=== PATIENT | female | born 1970 | race African-American/Black ===

== ENCOUNTER 2017-12-30 14:12 | Inpatient (IN) | payer OTHER ==
[~2017-12-30] VITALS: Ht 170.2 cm; Wt 114.0 kg
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
[2017-12-30] MEDS ORDERED: ALBU6.7H INH (17:29)
[2017-12-30] MEDS ORDERED: TIZA4CAP3 PO (17:31)
[2017-12-30] MEDS ORDERED: PROP20TA3 PO (17:40)
[2017-12-30 17:52] LABS: AUTOMATED NEUTROPHIL # 2.4 TH/MM3 (1.8-7.7); BASOPHIL # 0.1 TH/MM3 (0-0.2); BASOPHIL % 0.8 % (0.0-2.0); HEMATOCRIT 44.3 % (35.0-46.0); HEMOGLOBIN 14.8 GM/DL (11.6-15.3); LYMPH % 57.6 % (9.0-44.0); LYMPHOCYTE # 3.9 TH/MM3 (1.0-4.8); MEAN CELL VOLUME 88.1 FL (80.0-100.0); MEAN CORPUSCULAR HEMOGLOBIN 29.4 PG (27.0-34.0); MEAN CORPUSCULAR HGB CONC 33.4 % (32.0-36.0); MEAN PLATELET VOLUME 7.3 FL (7.0-11.0); MONO % 6.3 % (0.0-8.0); MONOCYTE # 0.4 TH/MM3 (0-0.9); NEUT % 35.3 % (16.0-70.0); PLATELET COUNT 304 TH/MM3 (150-450); RED BLOOD COUNT 5.02 MIL/MM3 (4.00-5.30); RED CELL DISTRIBUTION WIDTH 13.4 % (11.6-17.2); WHITE BLOOD COUNT 6.8 TH/MM3 (4.0-11.0)
[2017-12-30 18:05] LABS: ALBUMIN 3.9 GM/DL (3.4-5.0); ALT (GPT) 18 U/L (10-53); AST (GOT) 18 U/L (15-37); BICARBONATE 26.9 MEQ/L (21.0-32.0); BLOOD UREA NITROGEN 17 MG/DL (7-18); CALCIUM 9.3 MG/DL (8.5-10.1); CHLORIDE 103 MEQ/L (98-107); CREATININE 1.41 MG/DL (0.50-1.00); GLOMERULAR FILTRATION RATE 48 ML/MIN (>89); GLUCOSE,RANDOM 137 MG/DL (74-106); SODIUM (NA) 138 MEQ/L (136-145)
[2017-12-30 18:15] LABS: ALKALINE PHOSPHATASE 124 U/L (45-117); TOTAL BILIRUBIN ADULT 0.4 MG/DL (0.2-1.0); TOTAL PROTEIN 8.5 GM/DL (6.4-8.2)
[2017-12-30 19:10] VITALS: BP 140/63; PULSE 86; RESP 18; O2SAT 98
[2017-12-30] MEDS ORDERED: CYPR4TAB PO (19:47)
[2017-12-30] MEDS ORDERED: FLUO60TA PO (19:48)
[2017-12-30] MEDS ORDERED: LURA40 PO (19:49)
[2017-12-30] MEDS ORDERED: HYDR50TA94 PO (19:50)
[2017-12-30] MEDS ORDERED: PRAZ5CAP PO (19:50)
[2017-12-30] MEDS ORDERED: GABA600T PO ×2 (19:51→19:52)
[2017-12-30] MEDS ORDERED: SPIR25TA PO (19:51)
[2017-12-30] MEDS ORDERED: FLUO40CA PO (19:53)
[2017-12-30] MEDS ORDERED: METF500T PO (19:55)
[2017-12-30] MEDS ORDERED: hydrOXYzine HCL 50 MG/ML VIAL IM ONE (20:30)
[2017-12-30] MEDS ORDERED: QUEtiapine FUMARATE 25 MG TAB PO ONE (22:30)
[2017-12-30] MEDS ORDERED: ACETAMINOPHEN 325 MG TAB PO PRN (22:30)
[2017-12-30] MEDS ORDERED: ALUMINUM/MAGNESIUM/SIMETH 30 ML CUP PO PRN (22:30)
[2017-12-30] MEDS ORDERED: MAGNESIUM HYDROXIDE SUSP 30 ML CUP PO PRN (22:30)
[2017-12-30] MEDS ORDERED: ALBUTEROL SULFATE 90 MCG/ACT HFA 8 GM INHALER INH PRN (22:30)
[2017-12-30] MEDS ORDERED: diphenhydrAMINE HCL 50 MG CAP PO PRN (22:30)
[2017-12-30] MEDS ORDERED: diphenhydrAMINE HCL 50 MG/ML VIAL - HS PRN IM (22:30)
[2017-12-30] MEDS ORDERED: diphenhydrAMINE HCL 50 MG CAP - HS PRN PO (22:30)
[2017-12-30] MEDS ORDERED: diphenhydrAMINE HCL 50 MG/ML VIAL IM PRN (22:30)
[2017-12-31] MEDS ORDERED: QUEtiapine FUMARATE 25 MG TAB PO ONE
[2017-12-31 01:13] VITALS: BP 120/58; PULSE 102; RESP 18; TEMP 97.3; O2SAT 99
[2017-12-31 05:55] VITALS: BP 123/58; RESP 20; TEMP 97.5
[2017-12-31] MEDS: PROPRANOLOL HCL 20 MG TAB PO SCH ×2 (08:36→20:41)
[2017-12-31] MEDS: SPIRONOLACTONE 25 MG TAB PO SCH (08:36)
[2017-12-31] MEDS: GABAPENTIN 300 MG CAP PO SCH ×3 (08:36→20:42)
[2017-12-31] MEDS: metFORMIN HCL 500 MG TAB PO SCH ×2 (08:37→18:00)
[2017-12-31] MEDS ORDERED: NICOTINE 21 MG/24 HR PATCH T-DERMAL SCH (09:00)
[2017-12-31] MEDS ORDERED: FLUoxetine HCL 20 MG CAP PO SCH (09:00)
[2017-12-31] MEDS ORDERED: LURASIDONE 40 MG TAB PO SCH (09:00)
[2017-12-31] MEDS ORDERED: ALBUTEROL SULFATE 90 MCG/ACT HFA 8 GM INHALER INH PRN (12:30)
[2017-12-31] MEDS ORDERED: hydrOXYzine HCL 50 MG TAB PO SCH (13:00)
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
[2017-12-31] MEDS: ZIPRASIDONE HCL 40 MG CAP PO SCH ×2 (14:00→18:00)
--- NOTE | 2017-12-31 14:20 | PD.CONS ---
HPI Service [facility] Consult Requested By Reason for Consult Medical management [facility] Diagnoses: History of Present Illness 47-year-old female with past medical history significant for hypertension, diabetes, PTSD and anxiety who presented to the emergency department on 12/30 under Colvin act by patient's [place] nurse practitioner due to suicidal ideation. Patient has been admitted to inpatient psychiatry [facility] consulted to assist with ongoing medical management. Patient reports that she is a diabetic but does not take any insulin for this only takes metformin. She denies any fevers, chills, nausea, vomiting, diarrhea, constipation, headaches, throat pain, cough or shortness of breath. At the moment she does not have any acute complaints or concerns. She is requesting Tylenol if she should needed in case she does have a headache. She is eating and drinking without any issues, denies any dysuria or abdominal pain. She is asking when she will be discharged. Review of Systems Except as stated in HPI: all other systems reviewed are Neg Past Family Social History Allergies: Coded Allergies: No Known Allergies (Unverified , 12/30/17) Past Medical History Hypertension Diabetes PTSD Anxiety Right hip injury resulting in hairline fracture, no surgical intervention. Past Surgical History Lysis of adhesions Laparoscopic cholecystectomy Total hysterectomy secondary to ovarian cyst and endometriosis Reported Medications Reported Meds & Active Scripts Active Reported Metformin (Metformin HCl) 500 Mg Tab 1,000 Mg PO BIDPC Fluoxetine (Fluoxetine HCl) 40 Mg Cap 80 Cap PO DAILY Gabapentin 600 Mg Tab 900 Mg PO HS Gabapentin 600 Mg Tab 600 Mg PO BID Spironolactone 25 Mg Tab 25 Mg PO DAILY Hydroxyzine HCl 50 Mg Tab 50 Mg PO TID Prazosin (Prazosin HCl) 5 Mg Cap 5 Mg PO HS Fluoxetine (Fluoxetine HCl) 60 Mg Tab 60 Mg PO DAILY Cyproheptadine (Cyproheptadine HCl) 4 Mg Tab 8 Mg PO HS Propranolol (Propranolol HCl) 20 Mg Tab 20 Mg PO Q12HR Tizanidine (Tizanidine HCl) 4 Mg Cap 4 Mg PO TID PRN Proventil Hfa 6.7 GM Inh (Albuterol Sulfate) 90 Mcg/Act Aer 1 Puff INH Q4H PRN Active Ordered Medications Current Medications Medications (Trade) Dose Ordered Sig/Triston Route Start Time Stop Time Status Last Admin (Benadryl) 50 mg Q6H PRN PO 12/30/17 22:30 12/30/17 22:48 (Benadryl) 50 mg HS PRN PO 12/30/17 22:30 (Tylenol) 650 mg Q4H PRN PO 12/30/17 22:30 (Milk Of Magnesia Liq) 30 ml DAILY PRN PO 12/30/17 22:30 (Mag-Al Plus Susp Liq) 30 ml Q6H PRN PO 12/30/17 22:30 (Proair Hfa Inh) 1 puff Q4H PRN INH 12/30/17 22:30 (Zanaflex) 4 mg TID PRN PO 12/30/17 22:30 12/31/17 15:10 (Inderal) 20 mg Q12HR PO 12/31/17 09:00 12/31/17 08:36 (Periactin) 8 mg HS PO 12/31/17 21:00 (Minipress) 5 mg HS PO 12/31/17 21:00 (Aldactone) 25 mg DAILY PO 12/31/17 09:00 12/31/17 08:36 (Neurontin) 600 mg DAILY@0900,1500 PO 12/31/17 09:00 12/31/17 15:00 (Neurontin) 900 mg HS PO 12/31/17 21:00 (Glucophage) 1,000 mg BIDPC PO 12/31/17 09:00 12/31/17 08:37 (Latuda) 40 mg DAILY PO 01/01/18 09:00 (Geodon) 40 mg BIDPC PO 12/31/17 14:00 12/31/17 14:00 (Elavil) 25 mg HS PO 12/31/17 21:00 (PROzac) 40 mg DAILY PO 01/01/18 09:00 Family History Father: Pancreatic cancer Mother: Cardiac history Social History Denies any alcohol, tobacco or illicit drug use. Physical Exam Vital Signs Vital Signs Date Time Temp Pulse Resp B/P (MAP) Pulse Ox O2 Delivery O2 Flow Rate FiO2 12/31/17 05:55 97.5 20 123/58 (79) 12/31/17 01:13 97.3 102 18 120/58 (78) 99 12/30/17 19:10 86 18 140/63 (88) 98 Room Air Physical Exam GENERAL: This is a well-nourished, well-developed patient, in no apparent distress. SKIN: No rashes, ecchymoses or lesions. Cool and dry. HEAD: Atraumatic. Normocephalic. EYES: Pupils equal round and reactive. Extraocular motions intact. No scleral icterus. No injection or drainage. ENT: Nose without bleeding, purulent drainage. Throat without erythema. Airway patent. NECK: Trachea midline. No JVD. Supple, nontender. CARDIOVASCULAR: Regular rate and rhythm without murmurs, gallops, or rubs. RESPIRATORY: Clear to auscultation. Breath sounds equal bilaterally. No wheezes , rales, or rhonchi. GASTROINTESTINAL: Abdomen soft, non-tender, nondistended. No palpable masses. No guarding. MUSCULOSKELETAL: Extremities without clubbing, cyanosis, or edema. No joint tenderness, effusion, or edema noted. No calf tenderness. NEUROLOGICAL: Awake and alert. Cranial nerves II through XII intact. Motor and sensory grossly within normal limits. Five out of 5 muscle strength in all muscle groups. Normal speech. Laboratory Laboratory Tests Test 12/30/17 17:00 White Blood Count 6.8 Red Blood Count 5.02 Hemoglobin 14.8 Hematocrit 44.3 Mean Corpuscular Volume 88.1 Mean Corpuscular Hemoglobin 29.4 Mean Corpuscular Hemoglobin Concent 33.4 Red Cell Distribution Width 13.4 Platelet Count 304 Mean Platelet Volume 7.3 Neutrophils (%) (Auto) 35.3 Lymphocytes (%) (Auto) 57.6 Monocytes (%) (Auto) 6.3 Eosinophils (%) (Auto) 0.0 Basophils (%) (Auto) 0.8 Neutrophils # (Auto) 2.4 Lymphocytes # (Auto) 3.9 Monocytes # (Auto) 0.4 Eosinophils # (Auto) 0.0 Basophils # (Auto) 0.1 CBC Comment DIFF FINAL Differential Comment Blood Urea Nitrogen 17 Creatinine 1.41 Random Glucose 137 Total Protein 8.5 Albumin 3.9 Calcium Level 9.3 Alkaline Phosphatase 124 Aspartate Amino Transf (AST/SGOT) 18 Alanine Aminotransferase (ALT/SGPT) 18 Total Bilirubin 0.4 Sodium Level 138 Potassium Level 3.3 Chloride Level 103 Carbon Dioxide Level 26.9 Anion Gap 8 Estimat Glomerular Filtration Rate 48 Thyroid Stimulating Hormone 3rd Gen 1.140 Urine Opiates Screen NEG Urine Barbiturates Screen NEG Urine Amphetamines Screen NEG Urine Benzodiazepines Screen NEG Urine Cocaine Screen NEG Urine Cannabinoids Screen NEG Result Diagram: 12/30/17 1700 12/30/17 1700 Assessment and Plan Assessment and Plan 47-year-old female with past medical history significant for hypertension, diabetes, PTSD and anxiety who presented to the emergency department on 12/30 under Colvin act by patient's [facility] nurse practitioner due to suicidal ideation. Patient has been admitted to inpatient psychiatry [facility] consulted to assist with ongoing medical management. PTSD Anxiety -treatment per psychiatry greatly appreciated HTN, controlled - Continue home spironolactone 25 mg daily, Minipress 5 mg at bedtime, and Inderal 20 mg twice daily - Continue monitoring BP, adjust meds as needed DM II -Continue metformin 1000 mg twice daily - Check hemoglobin A1C - continue 1800 ADA diet - Accu-checks ACHS, monitor and if needed initiate sliding scale Decreased renal function hypokalemia -Labs from 12/30 reviewed, potassium 3.3, creatinine 1.41, GFR 48 -Recheck BMP tomorrow in the a.m., patient asymptomatic - ? if this could be related to Metformin use, will follow up on labs if creatinine still high, consider D/C Metformin. DVT prophylaxis-ambulation Discussed with nurse. Thank you for this consultation, will continue to follow along. Cristo Tinajero Dec 31, 2017 14:20
[2017-12-31] MEDS ORDERED: DEXTROSE 50% IN WATER 50 ML VIAL(D50) IV PUSH PRN (16:00)
[2017-12-31] MEDS ORDERED: metFORMIN HCL 500 MG TAB PO SCH (18:00)
[2017-12-31 18:27] VITALS: BP 129/54; PULSE 86; RESP 18; TEMP 98.1; O2SAT 93
[2017-12-31 18:28] VITALS: BP 129/54; PULSE 78; RESP 18; TEMP 98.1; O2SAT 93
[2017-12-31] MEDS: AMITRIPTYLINE HCL 25 MG TAB PO SCH (20:37)
[2017-12-31] MEDS: CYPROHEPTADINE HCL 4 MG TAB PO SCH (20:41)
[2017-12-31] MEDS: PRAZOSIN HCL 5 MG CAP PO SCH (20:41)
[2017-12-31] MEDS ORDERED: PROPRANOLOL HCL 20 MG TAB PO SCH (21:00)
[2017-12-31] MEDS ORDERED: CYPROHEPTADINE HCL 4 MG TAB PO SCH (21:00)
[2017-12-31] MEDS ORDERED: PRAZOSIN HCL 5 MG CAP PO SCH (21:00)
[2017-12-31] MEDS ORDERED: REMOVE OLD NICOTINE PATCH T-DERMAL SCH (21:00)
[2017-12-31] MEDS ORDERED: GABAPENTIN 300 MG CAP PO SCH ×2 (21:00)
[2018-01-01 05:48] VITALS: BP 128/74; PULSE 74; RESP 14; TEMP 97.1; O2SAT 98
[2018-01-01] MEDS ORDERED: FLUoxetine HCL 20 MG CAP PO SCH (09:00)
[2018-01-01] MEDS ORDERED: SPIRONOLACTONE 25 MG TAB PO SCH (09:00)
[2018-01-01] MEDS: ZIPRASIDONE HCL 40 MG CAP PO SCH ×2 (09:06→18:45)
[2018-01-01] MEDS: LURASIDONE 40 MG TAB PO SCH (09:06)
[2018-01-01] MEDS: SPIRONOLACTONE 25 MG TAB PO SCH (09:06)
[2018-01-01] MEDS: metFORMIN HCL 500 MG TAB PO SCH ×2 (09:06→18:45)
[2018-01-01] MEDS: FLUoxetine HCL 20 MG CAP PO SCH (09:07)
[2018-01-01] MEDS: PROPRANOLOL HCL 20 MG TAB PO SCH ×2 (09:10→21:55)
[2018-01-01] MEDS: GABAPENTIN 300 MG CAP PO SCH ×3 (09:11→21:55)
--- NOTE | 2018-01-01 12:42 | HHI.PR ---
Subjective Remarks Follow-up visit for hypertension, and diabetes. Patient seen and examined this morning resting in bed comfortably with no acute concerns or complaints. She denies any fevers, chills, nausea, vomiting, diarrhea, headaches, or dysuria. Objective Vitals Vital Signs Date Time Temp Pulse Resp B/P (MAP) Pulse Ox O2 Delivery O2 Flow Rate FiO2 01/01/18 05:48 97.1 74 14 128/74 (92) 98 12/31/17 18:28 98.1 78 18 129/54 (79) 93 12/31/17 18:27 98.1 86 18 129/54 (79) 93 Result Diagram: 12/30/17 1700 12/30/17 1700 Objective Remarks GENERAL: This is a well-nourished, well-developed patient, in no apparent distress. SKIN: Cool and dry. HEAD: Atraumatic. Normocephalic. EYES: Pupils equal round and reactive. No scleral icterus. No injection or drainage. ENT: Airway patent. NECK: Trachea midline. No JVD. CARDIOVASCULAR: Regular rate and rhythm without murmurs, gallops, or rubs. RESPIRATORY: Clear to auscultation. Breath sounds equal bilaterally. No wheezes , rales, or rhonchi. GASTROINTESTINAL: Abdomen soft, non-tender, nondistended. MUSCULOSKELETAL: Extremities without clubbing, cyanosis, or edema. No joint tenderness, effusion, or edema noted. No calf tenderness. NEUROLOGICAL: Awake and alert. Moving all extremities spontaneously, ambulating without difficulties. Motor and sensory grossly within normal limits. Five out of 5 muscle strength in all muscle groups. Normal speech. A/P Assessment and Plan 47-year-old female with past medical history significant for hypertension, diabetes, PTSD and anxiety who presented to the emergency department on 12/30 under [place]vin act by [facility] nurse practitioner due to suicidal ideation. Patient has been admitted to inpatient psychiatry [facility] consulted to assist with ongoing medical management. PTSD Anxiety -treatment per psychiatry greatly appreciated HTN, controlled - Continue home spironolactone 25 mg daily, Minipress 5 mg at bedtime, and Inderal 20 mg twice daily - Continue monitoring BP, adjust meds as needed DM II -Continue metformin 1000 mg twice daily -Hemoglobin A1c pending - continue 1800 ADA diet - Accu-checks ACHS, monitor and if needed initiate sliding scale Decreased renal function hypokalemia -Labs from 12/30 reviewed, potassium 3.3, creatinine 1.41, GFR 48 -BMP from today reviewed, electrolytes stable. Renal function improved DVT prophylaxis-ambulation Discussed with nurse. Cristo Tinajero Jan 01, 2018 12:42
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
--- NOTE | 2018-01-01 13:40 | HHI.PYPN ---
Subjective Remarks Patient seen in her room with RN chart reviewed patient discussed with nurse. Patient showing improved affect she now denies suicidality homicidality voices or visions. Said she slept well last night. Does not feel any untoward effects of the medication at this time. For now will continue treatment. If patient remains consistent improving will consider discharge within 1-2 days Review of Systems Except as stated in HPI: all other systems reviewed are Neg Mental Status Examination Appearance: Appropriate Consciousness: Alert Orientation: x4 Motor Activity: Normal gait Speech: Unremarkable Language: Adequate Fund of Knowledge: Adequate Attention and Concentration: Adequate Memory: Impaired Mood: Sad Affect: Other (slight decrease range of motion intensity) Thought Process & Associations: Intact Thought Content: Bizarre thinking Hallucination Type: Auditory (flashbacks), Visual, Tactile (flashbacks) Delusion Type: Paranoid Suicidal Ideation: Yes (patient states that yesterday she wouldn't take the suicide pill) Suicidal Plan: Yes (patient would've taken the suicide pill yesterday) Suicidal Intention: Yes (denies today) Homicidal Ideation: No Homicidal Plan: No Insight: Adequate Judgment: Adequate Results Labs Test 01/01/18 11:10 Vitals/IOs Vital Signs Date Time Temp Pulse Resp B/P (MAP) Pulse Ox O2 Delivery O2 Flow Rate FiO2 01/01/18 05:48 97.1 74 14 128/74 (92) 98 12/30/17 19:10 Room Air Assessment & Plan Problem List: (1) Chronic posttraumatic stress disorder ICD Codes: F43.12 - Post-traumatic stress disorder, chronic Assessment & Plan Estimated LOS: days patient showing some improvement in her mood and are processing. Is been compliant with medication. Did sleep well. For now continue treatment Justification for Cont. Inpt. This time patient would decompensated placed in a lower level of care Discharge Planning Return home Request HC Surrog/Guard Advoc?: No Tigre Quick MD Jan 01, 2018 13:40
[2018-01-01 13:42] LABS: AUTOMATED NEUTROPHIL # 1.8 TH/MM3 (1.8-7.7); BASOPHIL % 0.7 % (0.0-2.0); HEMATOCRIT 41.7 % (35.0-46.0); HEMOGLOBIN 14.1 GM/DL (11.6-15.3); LYMPH % 56.5 % (9.0-44.0); LYMPHOCYTE # 2.9 TH/MM3 (1.0-4.8); MEAN CELL VOLUME 88.5 FL (80.0-100.0); MEAN CORPUSCULAR HEMOGLOBIN 29.9 PG (27.0-34.0); MEAN CORPUSCULAR HGB CONC 33.8 % (32.0-36.0); MEAN PLATELET VOLUME 7.4 FL (7.0-11.0); MONO % 8.4 % (0.0-8.0); MONOCYTE # 0.4 TH/MM3 (0-0.9); NEUT % 34.4 % (16.0-70.0); PLATELET COUNT 274 TH/MM3 (150-450); RED BLOOD COUNT 4.72 MIL/MM3 (4.00-5.30); RED CELL DISTRIBUTION WIDTH 13.8 % (11.6-17.2); WHITE BLOOD COUNT 5.1 TH/MM3 (4.0-11.0)
[2018-01-01 14:08] LABS: BICARBONATE 28.1 MEQ/L (21.0-32.0); BLOOD UREA NITROGEN 18 MG/DL (7-18); CHLORIDE 105 MEQ/L (98-107); CHOLESTEROL 264 MG/DL (120-200); CREATININE 1.26 MG/DL (0.50-1.00); GLOMERULAR FILTRATION RATE 55 ML/MIN (>89); GLUCOSE,RANDOM 82 MG/DL (74-106); SODIUM (NA) 142 MEQ/L (136-145)
[2018-01-01 14:19] LABS: CHOLESTEROL/ HDL RATIO 5.73 RATIO; FREE T4 0.82 NG/DL (0.76-1.46); LDL CHOLESTEROL 188 MG/DL (0-99); TRIGLYCERIDES 152 MG/DL (42-150)
[2018-01-01 17:22] VITALS: BP 141/59; PULSE 86; RESP 16; TEMP 97.8; O2SAT 97
[2018-01-01 18:21] LABS: HEMOGLOBIN A1C 5.8 % (4.3-6.0)
[2018-01-01] MEDS: AMITRIPTYLINE HCL 25 MG TAB PO SCH (21:53)
[2018-01-01] MEDS: CYPROHEPTADINE HCL 4 MG TAB PO SCH (21:55)
[2018-01-01] MEDS: PRAZOSIN HCL 5 MG CAP PO SCH (21:56)
[2018-01-02 05:53] VITALS: BP 113/60; PULSE 67; RESP 16; TEMP 98.1
[2018-01-02] MEDS: SPIRONOLACTONE 25 MG TAB PO SCH (09:34)
[2018-01-02] MEDS: PROPRANOLOL HCL 20 MG TAB PO SCH (09:34)
[2018-01-02] MEDS: ZIPRASIDONE HCL 40 MG CAP PO SCH ×2 (09:34→17:09)
[2018-01-02] MEDS: LURASIDONE 40 MG TAB PO SCH (09:34)
[2018-01-02] MEDS: FLUoxetine HCL 20 MG CAP PO SCH (09:34)
[2018-01-02] MEDS: metFORMIN HCL 500 MG TAB PO SCH ×2 (09:35→17:09)
[2018-01-02] MEDS: GABAPENTIN 300 MG CAP PO SCH ×2 (09:36→14:53)
--- NOTE | 2018-01-02 12:49 | HHI.PR ---
Subjective Remarks Follow-up visit for HTN and DM. Patient seen and examined in her room. She reports that she is doing well, denies any fevers, chills, nausea, vomiting, or diarrhea. Discussed with nurse who does not report any acute concerns, BS have been stable. Objective Vitals Vital Signs Date Time Temp Pulse Resp B/P (MAP) Pulse Ox O2 Delivery O2 Flow Rate FiO2 01/02/18 05:53 98.1 67 16 113/60 (77) 01/01/18 17:22 97.8 86 16 141/59 (86) 97 I/O 01/01/18 01/01/18 01/01/18 01/02/18 01/02/18 01/02/18 07:00 15:00 23:00 07:00 15:00 23:00 Intake Total 240 ml Balance 240 ml Intake Oral 240 ml Result Diagram: 01/01/18 1110 01/01/18 1110 Objective Remarks GENERAL: This is a well-nourished, well-developed patient, in no apparent distress. SKIN: Cool and dry. HEAD: Atraumatic. Normocephalic. EYES: Pupils equal round and reactive. No scleral icterus. No injection or drainage. ENT: Airway patent. NECK: Trachea midline. No JVD. CARDIOVASCULAR: Regular rate and rhythm without murmurs, gallops, or rubs. RESPIRATORY: Clear to auscultation. Breath sounds equal bilaterally. No wheezes , rales, or rhonchi. GASTROINTESTINAL: Abdomen soft, non-tender, nondistended. MUSCULOSKELETAL: Extremities without clubbing, cyanosis, or edema. No joint tenderness, effusion, or edema noted. No calf tenderness. NEUROLOGICAL: Awake and alert. Moving all extremities spontaneously, ambulating without difficulties. Motor and sensory grossly within normal limits. Five out of 5 muscle strength in all muscle groups. Normal speech. A/P Assessment and Plan 47-year-old female with past medical history significant for hypertension, diabetes, PTSD and anxiety who presented to the emergency department on 12/30 under [place] act by patient's [facility] nurse practitioner due to suicidal ideation. Patient has been admitted to inpatient psychiatry [facility] consulted to assist with ongoing medical management. PTSD Anxiety -treatment per psychiatry greatly appreciated HTN, controlled - Continue home spironolactone 25 mg daily, Minipress 5 mg at bedtime, and Inderal 20 mg twice daily -BP stable DM II -Continue metformin 1000 mg twice daily -Hemoglobin A1c 5.8 - continue 1800 ADA diet -Blood sugar stable, DC Accu-Cheks. Decreased renal function hypokalemia -Labs from 12/30 reviewed, potassium 3.3, creatinine 1.41, GFR 48 -BMP from this morning reviewed with improvement in renal function. Discussed with patient, can follow-up as outpatient for ongoing monitoring. DVT prophylaxis-ambulation Discussed with nurse and patient. [facility] will sign off, please reconsult if needed. Cristo Tinajero Jan 02, 2018 12:49
[2018-01-02] MEDS ORDERED: SPIR25TA PO (16:33)
[2018-01-02] MEDS ORDERED: ALBU6.7H INH (16:33)
[2018-01-02] MEDS ORDERED: PRAZ5CAP PO (16:33)
[2018-01-02] MEDS ORDERED: TIZA4CAP3 PO (16:33)
[2018-01-02] MEDS ORDERED: CYPR4TAB PO (16:33)
[2018-01-02] MEDS ORDERED: FLUO20CA12 PO (16:33)
[2018-01-02] MEDS ORDERED: GABA600T PO ×2 (16:33)
[2018-01-02] MEDS ORDERED: METF500T PO (16:33)
[2018-01-02] MEDS ORDERED: PROP20TA3 PO (16:33)
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
[2018-01-02] MEDS ORDERED: LURA40 PO (16:39)
[2018-01-02 17:40] VITALS: BP 128/87; PULSE 79; RESP 18; TEMP 98; O2SAT 100
== END 2018-01-02 18:40 | disposition home or self-care (01) | DRG 882 ==
LOC: NEDAMB 14:12 → NEDA 22:58 → H260 23:45
PROVIDERS: ADMIT Psychiatry & Neurology Psychiatry; ATTEND Psychiatry & Neurology Psychiatry
DX: F43.12 Post-traumatic stress disorder, chronic (principal); R45.851 Suicidal ideations; E88.81 Metabolic syndrome and other insulin resistance; E66.3 Overweight; E11.9 Type 2 diabetes mellitus without complications; I10 Essential (primary) hypertension; N28.9 Disorder of kidney and ureter, unspecified; E87.6 Hypokalemia; Z79.84 Long term (current) use of oral hypoglycemic drugs; Z68.39 Body mass index [BMI] 39.0-39.9, adult; Z91.5 Personal history of self-harm
CPT/HCPCS: 80048; 80053; 80061; 80307; 82948; 83036; 84439; 84443; 85025; Q0163